=== PATIENT | male | born 1975 | race Caucasian/White ===

== ENCOUNTER 2022-04-15 23:04 | Emergency (ER) | payer OTHER ==
[~2022-04-15] VITALS: Ht 167.6 cm; Wt 97.5 kg
--- NOTE | 2022-04-15 23:08 | NUR ---
PT GWENDOLYN CHP TAKEN TO CHAIR A
--- NOTE | 2022-04-15 23:08 | NUR ---
Dr. Nam examining patient.
[2022-04-15 23:09] VITALS: BP 138/71
[2022-04-15 23:17] VITALS: BP 138/71
--- NOTE | 2022-04-15 23:17 | NUR ---
Patient D/C to custody.
== END 2022-04-15 23:17 ==
LOC: MED 23:04
DX: Z02.89 Encounter for other administrative examinations (principal)
CPT/HCPCS: 99283